=== PATIENT | male | born 1995 | race Caucasian/White ===

== ENCOUNTER 2017-12-04 22:51 | Emergency (ER) | payer MEDICAID ==
[~2017-12-04] VITALS: Ht 170.2 cm; Wt 136.0 kg
[2017-12-05] MEDS ORDERED: TETANUS, DIPHTHERIA, PERTUSSIS VAC/PF 0.5ML (>7YR OLD) IM ONE (04:30)
[2017-12-05] MEDS ORDERED: KETOROLAC 60MG/2ML VIAL IM ONE (05:00)
[2017-12-05] MEDS ORDERED: ACETAMINOPHEN 325MG TABLET PO ONE (07:30)
[2017-12-05 08:00] VITALS: BP 154/91
== END 2017-12-05 08:01 | disposition home or self-care (01) ==
LOC: ER 22:51
DX: S00.81XA Abrasion of other part of head, initial encounter (principal); F10.129 Alcohol abuse with intoxication, unspecified; S80.811A Abrasion, right lower leg, initial encounter; R41.82 Altered mental status, unspecified; S10.81XA Abrasion of other specified part of neck, initial encounter; W01.0XXA Fall on same level from slipping, tripping and stumbling without subsequent striking against object, initial encounter; Y93.9 Activity, unspecified; Y92.9 Unspecified place or not applicable
CPT/HCPCS: 36415; 70450; 72125; 73502; 73562; 90471; 90715; 96372; 99285; G0482; J1885; Z7610